=== PATIENT | male | born 1975 | race African-American/Black ===

== ENCOUNTER 2016-12-18 23:35 | Emergency (ER) | payer OTHER ==
[~2016-12-18] VITALS: Ht 160 cm; Wt 66.7 kg
[~2016-12-18 23:35] MED LIST: ADVAIR 250-501 EACH INH; ALBUTEROL SULF8.5 GM INH; ALBUTEROL2.5 MG/3 M HHN; AZITHROMYCIN250 MG ORAL; CYCLOGYL2 ML OP; GENOPTIC O.O1 APPLIC RIGHT EYE; HYDROCHLOROTH12.5 M2 ORAL; HYDROCHLOROTHIA25 MG ORAL; NORVASC5 MG ORAL; PREDNISONE20 M1 PO; PREDNISONE20 MG ORAL; PREDNISONE50 MG ORAL; PROAIR HFA8.5 GM INH; QVAR7.3 G2 IH; TESSALON PERLE100 M2 ORAL
[2016-12-19] MEDS ORDERED: LORazepam Inj 2mg/ml 1ml IV ONE (00:15)
[2016-12-19] MEDS ORDERED: DuoNeb 0.5-3(2.5)mg/3ml neb HHN ONE (00:15)
[2016-12-19 00:32] LABS: MEAN CORPUSCULAR HEMOGLOBIN 31.2 PG (27.0-31.0); MEAN CORPUSCULAR HGB CONC 33.7 G/DL (32.0-36.0); MEAN CORPUSCULAR VOLUME 93 FL (80-99); MEAN PLATELET VOLUME 7.6 FL (6.5-10.1); PLATELET COUNT 302 K/UL (150-450); RED BLOOD COUNT 5.69 M/UL (4.70-6.10)
[2016-12-19 00:52] LABS: ALANINE AMINOTRANSFERASE 26 U/L (3-41); ALBUMIN/GLOBULIN RATIO 1.5 (1.0-2.7); ANION GAP 17 (5-15); ASPARTATE AMINO TRANSFERASE 35 U/L (5-40); CALCIUM 9.9 mg/dL (8.6-10.2); CARBON DIOXIDE 27 mEQ/L (20-30); CHLORIDE 96 mEQ/L (98-107); CREATININE 1.4 mg/dL (0.7-1.2); GLOMERULAR FILTRATION RATE > 60 mL/min (>60); HEMOLYSIS 4; POTASSIUM 4.4 mEQ/L (3.4-4.9); SODIUM 140 mEQ/L (135-145); TOTAL PROTEIN 8.3 g/dL (6.6-8.7)
[2016-12-19 00:55] LABS: TROPONIN I < 0.30 ng/mL (<=0.30)
[2016-12-19 01:30] VITALS: BP 178/106
[2016-12-19 01:45] LABS: CKMB 8.4 ng/mL (< 6.7)
--- NOTE | 2016-12-19 02:50 | Emergency Room Report ---
History of Present Illness General Chief Complaint: Pain Source: Patient Present Illness HPI Patient 41 male presented after increased right shoulder pain. Patient had gradual onset of symptoms. This reported having recent alcohol use as well as cocaine use. He stated prior history of hypertension. Patient stated that he had been having some associated pain which has not worsened by movement he denied recent trauma. Patient stated that he takes hydrochlorothiazide as well as another medication for his blood pressure but cannot recall the name. Allergies: Coded Allergies: No Known Allergies (Unverified , 04/02/13) Patient History Past Medical History: see triage record Reviewed Nursing Documentation: PMH: Agreed, PSxH: Agreed Nursing Documentation-PM Past Medical History: No History, Except For Hx Hypertension: Yes Hx Asthma: Yes Review of Systems All Other Systems: negative except mentioned in HPI Physical Exam Vital Signs Date Time Temp Pulse Resp B/P Pulse Ox O2 Delivery O2 Flow Rate FiO2 12/18/16 23:41 98.1 76 16 200/117 98 Room Air Sp02 EP Interpretation: reviewed, normal General Appearance: normal inspection, well appearing, no apparent distress, alert, GCS 15 Head: atraumatic ENT: normal ENT inspection, hearing grossly normal, normal voice Neck: normal inspection, full range of motion, supple, no bony tend Respiratory: normal inspection, lungs clear, normal breath sounds, no respiratory distress, no retraction, no wheezing Cardiovascular #1: regular rate, rhythm, no edema Gastrointestinal: normal inspection, normal bowel sounds, non tender, soft, no guarding, no hernia Genitourinary: no CVA tenderness Musculoskeletal: normal inspection, back normal, normal range of motion Neurologic: normal inspection, alert, responsive, speech normal Psychiatric: normal inspection, judgement/insight normal, mood/affect normal Skin: normal inspection, normal color, no rash Medical Decision Making Diagnostic Impression: Primary Impression: acute asthma exacerbation Additional Impressions: Uncontrolled hypertension Substance abuse Abnormal EKG ER Course Patient presented for right shoulder pain. Differential diagnosis included but was not limited to acute coronary syndrome, pulmonary embolism, pneumonia, aortic dissection, shingles, pneumothorax, aortic dissection, esophageal rupture , pericarditis. Because of complexity of patient's case laboratory testing and imaging studies were ordered. The patient was noted to have evidence of cardiac ischemia on EKG EKG interpreted by me showed EKG interpreted by me showed normal sinus rhythm with a rate of 73 there were lateral T-wave inversion noted as well as some ST elevation which appears to be J-point elevation present or T inversion noted. Laboratory testing showed no evidence of cardiac injury. Patient's pain was noted to be approximately one day in length. The patient was advised that he requires inpatient cardiac workup. The patient was advised that his EKG was abnormal. The patient was advised risk benefits alternatives of leaving AGAINST MEDICAL ADVICE and he indicated understanding and all questions are answered patient still continued want to leave and signed AGAINST MEDICAL ADVICE. Despite risks including but not limited to disability and worsening of current lifestyle. Labs Test 12/19/16 00:20 12/19/16 02:40 White Blood Count 8.0 K/UL (4.8-10.8) Red Blood Count 5.69 M/UL (4.70-6.10) Hemoglobin 17.7 G/DL (14.2-18.0) Hematocrit 52.6 % (42.0-52.0) Mean Corpuscular Volume 93 FL (80-99) Mean Corpuscular Hemoglobin 31.2 PG (27.0-31.0) Mean Corpuscular Hemoglobin Concent 33.7 G/DL (32.0-36.0) Red Cell Distribution Width 12.0 % (11.6-14.8) Platelet Count 302 K/UL (150-450) Mean Platelet Volume 7.6 FL (6.5-10.1) Neutrophils (%) (Auto) % (45.0-75.0) Lymphocytes (%) (Auto) % (20.0-45.0) Monocytes (%) (Auto) % (1.0-10.0) Eosinophils (%) (Auto) % (0.0-3.0) Basophils (%) (Auto) % (0.0-2.0) Sodium Level 140 mEQ/L (135-145) Potassium Level 4.4 mEQ/L (3.4-4.9) Chloride Level 96 mEQ/L (98-107) Carbon Dioxide Level 27 mEQ/L (20-30) Anion Gap 17 (5-15) Blood Urea Nitrogen 21 mg/dL (7-23) Creatinine 1.4 mg/dL (0.7-1.2) Estimat Glomerular Filtration Rate > 60 mL/min (>60) Glucose Level 104 mg/dL (74-106) Calcium Level 9.9 mg/dL (8.6-10.2) Total Bilirubin 0.3 mg/dL (0.0-1.2) Aspartate Amino Transf (AST/SGOT) 35 U/L (5-40) Alanine Aminotransferase (ALT/SGPT) 26 U/L (3-41) Alkaline Phosphatase 85 U/L (40-129) Total Creatine Kinase 814 U/L (38-174) Creatine Kinase MB 8.4 ng/mL (< 6.7) Creatine Kinase MB Relative Index 1.0 Total Protein 8.3 g/dL (6.6-8.7) Albumin 5.0 g/dL (3.5-5.2) Globulin 3.3 g/dL Albumin/Globulin Ratio 1.5 (1.0-2.7) Chest X-Ray Diagnostic Results EP Interpretation: Yes Findings: no consolidation, no effusion, no pneumothorax, no acute cardiopulmonary disease Number of Views: 1 Last Vital Signs Date Time Temp Pulse Resp B/P Pulse Ox O2 Delivery O2 Flow Rate FiO2 12/19/16 01:34 71 21 98 Room Air 12/19/16 01:30 98.1 178/106 Status: improved Disposition: AGAINST MEDICAL ADVICE Condition: Serious Referrals: [facility] (PCP) Balta Millard Dec 19, 2016 02:50
[2016-12-19 02:59] VITALS: BP 143/98
[2016-12-19 03:17] LABS: TROPONIN I < 0.30 ng/mL (<=0.30)
[2016-12-19 03:30] VITALS: BP 143/98
--- NOTE | 2016-12-19 11:57 | Diagnostic Imaging Report ---
Indication: Chest Pain Comparison: 06/19/14 A single view chest radiograph was obtained. Findings: Cardiomediastinal appearance is within normal limits for age. Pulmonary vascularity is appropriate. The diaphragmatic contour is smooth and costophrenic angles are sharp. No pleural effusions are identified. The bones are unremarkable. Impression: No acute findings
--- NOTE | 2016-12-21 08:29 | Cardiology Report ---
APPROVED REPORT EKG Measurement Heart [id number] Normal sinus rhythm ST elevation, consider early repolarization, pericarditis, or injury RBBB T wave abnormality, consider inferior ischemia Abnormal ECG
--- NOTE | 2016-12-21 08:29 | Cardiology Report ---
APPROVED REPORT EKG Measurement Heart [id number] Normal sinus rhythm ST abn - consider acute inferolateral infarction RBBB Abnormal ECG
== END 2016-12-19 03:30 | disposition left against medical advice (07) ==
LOC: EMR 23:56
DX: J45.901 Unspecified asthma with (acute) exacerbation (principal); I10 Essential (primary) hypertension; F19.10 Other psychoactive substance abuse, uncomplicated; R94.31 Abnormal electrocardiogram [ECG] [EKG]
CPT/HCPCS: 36415; 71010; 80053; 82550; 82553; 84484; 85025; 93005; 94640; 94664; 96374; J7620

== ENCOUNTER 2016-12-23 01:29 | Emergency (ER) | payer OTHER ==
[~2016-12-23] VITALS: Ht 160 cm; Wt 66.7 kg
[2016-12-23 01:45] VITALS: BP 192/128
[2016-12-23 02:00] VITALS: BP 203/126
[2016-12-23] MEDS ORDERED: Norco 5mg/325mg tab ORAL ONE (02:00)
[2016-12-23] MEDS ORDERED: IBUPROFEN600 MG ORAL (02:16)
--- NOTE | 2016-12-23 02:17 | Emergency Room Report ---
History of Present Illness General Chief Complaint: Pain Source: Patient Present Illness HPI This is a 41-year-old male who is left-hand dominant. He presents with chief complaint of right shoulder pain for the last week and a half. No trauma. He woke up one day after drinking in complaining of left shoulder pain area. Worse with certain movement. No fever or chills. No nausea no vomiting. No chest pain. Denies any other complaint. Pain is 8/10. Allergies: Coded Allergies: No Known Allergies (Unverified , 04/02/13) Patient History Past Medical History: see triage record, old chart reviewed, asthma Past Surgical History: other Pertinent Family History: none Social History: Denies: drug use Immunizations: other Reviewed Nursing Documentation: PMH: Agreed, PSxH: Agreed Nursing Documentation-PMH Hx Hypertension: Yes Hx Asthma: Yes Review of Systems Eye: Denies: blurred vision, eye pain ENT: Denies: ear pain, nose congestion, throat swelling Respiratory: Denies: cough, shortness of breath Cardiovascular: Denies: chest pain, palpitations Gastrointestinal: Denies: abdominal pain, diarrhea, nausea, vomiting Musculoskeletal: Reports: joint pain, Denies: back pain Skin: Denies: rash Neurological: Denies: headache, numbness Endocrine: Denies: increased thirst, increased urine Hematologic/Lymphatic: Denies: easy bruising All Other Systems: negative except mentioned in HPI Physical Exam Vital Signs Date Time Temp Pulse Resp B/P Pulse Ox O2 Delivery O2 Flow Rate FiO2 12/23/16 01:37 98.1 73 16 192/128 97 Room Air vitals with hypertension Sp02 EP Interpretation: reviewed, normal General Appearance: well appearing, no apparent distress, alert Head: normocephalic, atraumatic Eyes: bilateral eye EOMI, bilateral eye PERRL ENT: hearing grossly normal, normal pharynx Neck: full range of motion, supple, no meningismus Respiratory: chest non-tender, lungs clear, normal breath sounds Cardiovascular #1: regular rate, rhythm, no murmur Gastrointestinal: normal bowel sounds, non tender, no mass, no organomegaly, no bruit, non-distended Musculoskeletal: back normal, gait/station normal, normal range of motion, other - Tenderness with palpation of the glenoid fossa superiorly. Full range of motion. Sensation normal. Neurologic: alert, oriented x3 Psychiatric: mood/affect normal Skin: warm/dry Medical Decision Making Diagnostic Impression: Primary Impression: Calcific tendonitis of right shoulder region Additional Impressions: Cocaine abuse Hypertension Qualified Codes: I10 - Essential (primary) hypertension ER Course Patient presents with shoulder pain secondary to calcified tendinitis. His blood pressure elevated consistent use cocaine. He has no complaint secondary to high blood pressure. Claimed that he is compliant with his medication. We' ll discharge home. Other X-Ray Diagnostic Results Other X-Ray Diagnostic Results : X-Ray Ordered: X-rays of right shoulder Date: Dec 23, 2016 Time: 02:15 EP Interpretation: Yes Findings: no fractures, no dislocation, no soft tissue swelling, other - calcific tendonitis Number of Views: 3 Last Vital Signs Date Time Temp Pulse Resp B/P Pulse Ox O2 Delivery O2 Flow Rate FiO2 12/23/16 01:45 98.1 73 16 192/128 97 Room Air Status: improved Disposition: HOME, SELF-CARE Condition: Stable Scripts Ibuprofen* (MOTRIN*) 600 Mg Tablet 600 MG ORAL Q8H Y for For Pain, #30 TAB 0 Refills Prov: NEDA NYE M.D. 12/23/16 Referrals: [facility] (PCP) Additional Instructions: Abstain from drugs and alcohol. Followup with your DrYing in 7 days. Take your blood pressure medication. Return if worse. NEDA NYE M.D. Dec 23, 2016 02:17
[2016-12-23 02:31] VITALS: BP 203/126
--- NOTE | 2016-12-23 10:58 | Diagnostic Imaging Report ---
Indication: Pain Findings: 3 views of the right shoulder were obtained. No acute fractures, malalignment, erosions or periostitis are identified. Bone mineralization is within normal limits. Soft tissues are unremarkable. Impression: Negative examination of the shoulder.
== END 2016-12-23 02:33 | disposition home or self-care (01) ==
LOC: EMR 01:55
DX: M75.31 Calcific tendinitis of right shoulder (principal); F14.10 Cocaine abuse, uncomplicated; I10 Essential (primary) hypertension
CPT/HCPCS: 99283

== ENCOUNTER 2017-05-25 17:23 | Emergency (ER) | payer OTHER ==
[~2017-05-25] VITALS: Ht 160 cm; Wt 66.7 kg
[~2017-05-25 17:23] MED LIST changes: +IBUPROFEN600 MG ORAL
[2017-05-25 17:30] VITALS: BP 158/121
--- NOTE | 2017-05-25 17:31 | Emergency Room Report ---
History of Present Illness General Chief Complaint: Dyspnea/Respdistress Source: Patient Present Illness HPI 41-year-old male presents to the emergency department complaining of wheezing and exacerbation of his asthma x1 week. Patient states that he is been using his nebulized albuterol treatments at home with minimal relief. Patient states that he is out of his meter dose inhaler. Patient denies fevers, chills, cough , recent travel or ill contacts. Patient also reports increase in his acid reflux times one week burning sensation is worse at night. Denies CP, Palpitations, LOC, AMS, dizziness, Changes in Vision, Sensation, paresthesias, or a sudden severe headache. Allergies: Coded Allergies: No Known Allergies (Unverified , 04/02/13) Patient History Past Medical History: see triage record Past Surgical History: none Pertinent Family History: none Social History: Reports: smoking Immunizations: UTD Reviewed Nursing Documentation: PMH: Agreed, PSxH: Agreed Nursing Documentation-PMH Hx Hypertension: Yes Hx Asthma: Yes Review of Systems All Other Systems: negative except mentioned in HPI Physical Exam Vital Signs Date Time Temp Pulse Resp B/P (MAP) Pulse Ox O2 Delivery O2 Flow Rate FiO2 05/25/17 17:25 98.4 75 22 175/105 98 Room Air Sp02 EP Interpretation: reviewed, normal General Appearance: no apparent distress, alert, GCS 15, non-toxic Head: normocephalic, atraumatic Eyes: bilateral eye normal inspection, bilateral eye PERRL ENT: hearing grossly normal, normal voice Neck: full range of motion Respiratory: chest non-tender, no respiratory distress, speaking full sentences , wheezing - moderate wheezing bilaterally Cardiovascular #1: regular rate, rhythm, no edema, normal capillary refill Gastrointestinal: normal bowel sounds, non tender, soft Rectal: deferred Musculoskeletal: back normal, gait/station normal, normal range of motion, non- tender Neurologic: alert, oriented x3, responsive, motor strength/tone normal, sensory intact, speech normal Skin: normal color, no rash, warm/dry, well hydrated Medical Decision Making PA Attestation Dr. corbin is my supervising Physician whom patient management has been discussed with. Diagnostic Impression: Primary Impression: acute asthma exacerbation ER Course 41-year-old male presents to the emergency department complaining of wheezing and exacerbation of his asthma x1 week. Patient states that he is been using his nebulized albuterol treatments at home with minimal relief. Patient states that he is out of his meter dose inhaler. Patient denies fevers, chills, cough , recent travel or ill contacts. Patient also reports increase in his acid reflux times one week burning sensation is worse at night. Denies CP, Palpitations, LOC, AMS, dizziness, Changes in Vision, Sensation, paresthesias, or a sudden severe headache. Ddx considered but are not limited to URI, pneumonia, PE, strep pharyngitis, meningitis. Vital signs: Pt.is afebrile VS are WNL H&PE are most consistent with ORDERS: none required at this time, the diagnosis is clinical ED INTERVENTIONS: -Albuterol HHN x 2 -Solumedrol IM -Zantac PO --re-Evaluation: lungs are clear bilaterally, the pt. reports subjective improvement as well. DISCHARGE: At this time pt. is stable for d/c to home. Will provide printed patient care instructions, and any necessary prescriptions. Care plan and follow up instructions have been discussed with the patient prior to discharge. Last Vital Signs Date Time Temp Pulse Resp B/P (MAP) Pulse Ox O2 Delivery O2 Flow Rate FiO2 05/25/17 17:25 98.4 75 22 175/105 98 Room Air Disposition: HOME, SELF-CARE Condition: Stable Scripts Ranitidine Hcl* (ZANTAC*) 150 Mg Tablet 150 MG ORAL TWICE A DAY for 14 Days, #28 TAB Prov: Sabine Cullen 05/25/17 Albuterol Sulfate* (ALBUTEROL SULFATE MDI*) 8.5 Gm Hfa.aer.ad 2 PUFF INH Q3H, #1 INH 3 Refills Prov: Sabine Cullen 05/25/17 Patient Instructions: Asthma, Adult, [id number] Additional Instructions: Take medications as directed. Follow up with a Primary Care Provider in 3-5 days, even if your symptoms have resolved. --Please review list of primary care clinics, if you do not already have a primary care provider Return sooner to ED if new symptoms occur, or current symptoms become worse. - Please note that this Emergency Department Report was dictated using [employer] software, occasionally this can lead to erroneous entry secondary to interpretation by the dictation equipment. Sabine Cullen May 25, 2017 17:31
[2017-05-25] MEDS ORDERED: Albuterol ud Inhalation HHN ONE ×2 (17:45→18:45)
[2017-05-25] MEDS ORDERED: Solu-MEDROL 125mg Inj IM ONE (17:45)
[2017-05-25 19:17] VITALS: BP 172/117
[2017-05-25] MEDS ORDERED: ZANTAC150 MG ORAL (19:23)
[2017-05-25] MEDS ORDERED: ALBUTEROL SULF8.5 GM INH (19:23)
[2017-05-25 19:30] VITALS: BP 172/117
== END 2017-05-25 19:36 | disposition home or self-care (01) ==
LOC: EMR 17:42
DX: J45.901 Unspecified asthma with (acute) exacerbation (principal); I10 Essential (primary) hypertension; F17.200 Nicotine dependence, unspecified, uncomplicated
CPT/HCPCS: 94640; 94664; 96372; 99284; J2930

== ENCOUNTER 2017-06-23 00:29 | Emergency (ER) | payer OTHER ==
[~2017-06-23] VITALS: Ht 160 cm; Wt 63.5 kg
[~2017-06-23 00:29] MED LIST changes: +ZANTAC150 MG ORAL
[2017-06-23 00:34] VITALS: BP 162/118
[2017-06-23] MEDS ORDERED: Ipratropium 0.02% Inh Soln 2.5ml UD HHN ONE (00:45)
[2017-06-23] MEDS ORDERED: Albuterol ud Inhalation HHN ONE (00:45)
[2017-06-23] MEDS ORDERED: PREDNISONE20 MG ORAL (02:33)
[2017-06-23 02:34] VITALS: BP 155/105
[2017-06-23 03:30] VITALS: BP 154/100
--- NOTE | 2017-06-23 03:37 | Emergency Room Report ---
History of Present Illness General Chief Complaint: Asthma Source: Patient Present Illness HPI Patient presents with complaints of asthma exacerbation Patient has had multiple ER visits for this exacerbation Patient reports at the change in weather he feels is likely contributing to his condition today Denies any fevers or chills denies any chest pain He does feel short of breath Denies any vomiting or diarrhea Allergies: Coded Allergies: No Known Allergies (Unverified , 04/02/13) Patient History Past Medical History: see triage record Pertinent Family History: none Reviewed Nursing Documentation: PMH: Agreed, PSxH: Agreed Nursing Documentation-PMH Hx Hypertension: Yes Hx Asthma: Yes Review of Systems All Other Systems: negative except mentioned in HPI Physical Exam Vital Signs Date Time Temp Pulse Resp B/P (MAP) Pulse Ox O2 Delivery O2 Flow Rate FiO2 06/23/17 00:30 97.5 74 18 162/118 98 Room Air 06/23/17 00:45 21 Sp02 EP Interpretation: reviewed, normal General Appearance: well appearing, no apparent distress Head: normocephalic, atraumatic Eyes: bilateral eye PERRL, bilateral eye EOMI ENT: hearing grossly normal, normal pharynx, TMs + canals normal, uvula midline Neck: full range of motion, supple, no meningismus, no bony tend Respiratory: no respiratory distress, no retraction, no accessory muscle use, wheezing - Bilaterally Cardiovascular #1: normal peripheral pulses, regular rate, rhythm, no edema, no gallop, no JVD, no murmur Gastrointestinal: normal bowel sounds, non tender, soft, no mass, no organomegaly, non-distended, no guarding, no hernia, no pulsatile mass, no rebound Genitourinary: no CVA tenderness Musculoskeletal: normal inspection Neurologic: oriented x3, responsive, grease monkey III-XII nml as tested, motor strength/ tone normal, sensory intact Psychiatric: mood/affect normal Skin: normal color, no rash, warm/dry, palpation normal Lymphatic: normal inspection, no adenopathy Medical Decision Making Diagnostic Impression: Primary Impression: Asthma attack ER Course Patient has had multiple imaging on file at this time saturating appropriately No signs of any retractions patient has done significantly better with breathing treatment was given steroids and will continue steroids at home Last Vital Signs Date Time Temp Pulse Resp B/P (MAP) Pulse Ox O2 Delivery O2 Flow Rate FiO2 06/23/17 00:57 78 18 100 Room Air 21 06/23/17 00:34 97.5 162/118 Status: improved Disposition: HOME, SELF-CARE Condition: Improved Scripts Prednisone* (PREDNISONE*) 20 Mg Tablet 20 MG ORAL BID, #8 TAB Prov: JOVANNA MILES D.O. 06/23/17 Referrals: [facility] (PCP) Patient Instructions: Asthma, Adult Additional Instructions: Patient is provided with the discharge instructions notified to follow up with primary doctor in the next 2-3 days otherwise return to the er with any worsening symptoms. Please note that this report is being documented using [employer] technology. This can lead to erroneous entry secondary to incorrect interpretation by the dictating instrument. JOVANNA MILES D.O. Jun 23, 2017 03:37
== END 2017-06-23 03:30 | disposition home or self-care (01) ==
LOC: EMR 00:56
DX: J45.901 Unspecified asthma with (acute) exacerbation (principal); I10 Essential (primary) hypertension
CPT/HCPCS: 94640; 94664; 99284

== ENCOUNTER 2017-08-17 14:14 | Emergency (ER) | payer OTHER ==
[~2017-08-17] VITALS: Ht 160 cm; Wt 72.1 kg
--- NOTE | 2017-08-17 14:34 | Emergency Room Report ---
History of Present Illness General Chief Complaint: Asthma Source: Patient, Medical Record Present Illness HPI 42-year-old male presents ER complaining asthma exacerbation. Patient complains of wheezing "throughout the day" since Thursday. Patient states symptoms worsen at night. Patient reports history of asthma; states he ran out of his inhaler. Patient denies fever, chest pain, rash, nausea, vomiting, diarrhea. Patient requesting breathing treatment. Allergies: Coded Allergies: No Known Allergies (Unverified , 04/02/13) Patient History Past Medical History: see triage record, asthma Reviewed Nursing Documentation: PMH: Agreed, PSxH: Agreed Nursing Documentation-PMH Past Medical History: No History, Except For Hx Hypertension: Yes Hx Asthma: Yes Review of Systems All Other Systems: negative except mentioned in HPI Physical Exam Vital Signs Date Time Temp Pulse Resp B/P (MAP) Pulse Ox O2 Delivery O2 Flow Rate FiO2 08/17/17 14:20 97.7 75 18 162/93 96 Room Air Sp02 EP Interpretation: reviewed, normal General Appearance: no apparent distress, alert, GCS 15, non-toxic Head: normocephalic, atraumatic Eyes: bilateral eye normal inspection, bilateral eye PERRL Neck: full range of motion Respiratory: chest non-tender, no rhonchi, no respiratory distress, no accessory muscle use, wheezing - inspiration and expiration in all lung huang, other - no stridor Cardiovascular #1: regular rate, rhythm Musculoskeletal: back normal, digits/nails normal, gait/station normal, normal range of motion, non-tender Neurologic: alert, oriented x3, responsive, motor strength/tone normal, sensory intact, speech normal Psychiatric: mood/affect normal Skin: normal color, no rash, warm/dry, well hydrated Medical Decision Making PA Attestation Dr. Millard is my supervising Physician whom patient management has been discussed with. Diagnostic Impression: Primary Impression: Asthma attack ER Course Pt presents to ED c/o asthma symptoms. DDX considered but are not limited to asthma, viral URI, influenza. VITAL SIGNS are WNL, patient is afebrile. ORDERS: None required at this time, diagnosis is clinical. ER COURSE Patient provided with prednisone in ER. Albuterol/Atrovent breathing treatment provided. Following first breathing treatment, wheezing still noted bilaterally. Second breathing treatment provided. Following second treatment patient states no longer having difficulty with breathing with mild diffuse wheezing. Patient is resting comfortably in no acute distress. DISCHARGE: -Rx given for Prednisone. -Rx provided for Albuterol MDI. At this time pt is stable for d/c to home. Patient to take medications as instructed Will provide with patient care instructions and any necessary prescriptions. Care plan and follow-up instructions provided. Patient instructed to follow-up with primary care provider in 3 - 5 days. Patient questions asked and answered. ER precautions given. Patient instructed to return to ER immediately for any new or worsening of symptoms including but not limited to increasing SOB, persistent fever. Last Vital Signs Date Time Temp Pulse Resp B/P (MAP) Pulse Ox O2 Delivery O2 Flow Rate FiO2 08/17/17 14:20 97.7 75 18 162/93 96 Room Air Reevaluation Impression 1515 repeat lung exam, intermittent wheezes bilaterally Repeat breathing treatment ordered. 1600 repeat lung exam, mild diffuse wheezes bilaterally. Patient reports feeling "much better" following second breathing treatment. Patient states he is ready to be discharged home. Patient states he has appointment with PCP scheduled for tomorrow for asthma symptoms and treatment. Disposition: HOME, SELF-CARE Condition: Improved Scripts Prednisone* (PREDNISONE*) 20 Mg Tablet 40 MG ORAL DAILY for 5 Days, #10 TAB Prov: Conner Fields 08/17/17 Albuterol Sulfate* (ALBUTEROL SULFATE MDI*) 8.5 Gm Hfa.aer.ad 2 PUFF INH Q4H, #1 INH 0 Refills Prov: Conner Fields 08/17/17 Patient Instructions: Asthma, Adult Additional Instructions: Followup with primary care provider in 3 -5 days. Take medications as directed. Patient questions asked and answered. ER precautions given, patient instructed to return to ER immediately for any new or worsening of symptoms. Conner Fields Aug 17, 2017 14:34
[2017-08-17] MEDS ORDERED: ALBUTEROL SULF8.5 GM INH (14:38)
[2017-08-17] MEDS ORDERED: PREDNISONE20 MG ORAL (14:38)
[2017-08-17] MEDS ORDERED: Solu-MEDROL 125mg Inj IVP ONE (14:45)
[2017-08-17] MEDS ORDERED: Albuterol/Ipratropium 3ml neb HHN ONE ×2 (14:45→15:45)
[2017-08-17 15:18] VITALS: BP 158/90
[2017-08-17 16:01] VITALS: BP 110/79
[2017-08-17 16:02] VITALS: BP_SYST 104; BP_SYST 129; BP_DIAS 64; BP_DIAS 82
[2017-08-17 16:28] VITALS: BP 104/64
== END 2017-08-17 16:32 | disposition home or self-care (01) ==
LOC: EMR 14:52
DX: J45.901 Unspecified asthma with (acute) exacerbation (principal); I10 Essential (primary) hypertension
CPT/HCPCS: 94640; 94664; 96374; 99284; J2930; J7620

== ENCOUNTER 2017-12-05 04:03 | Emergency (ER) | payer OTHER ==
[~2017-12-05] VITALS: Ht 160 cm; Wt 66.7 kg
[2017-12-05 04:20] VITALS: BP 184/106
[2017-12-05] MEDS ORDERED: Ketorolac 30mg Inj IM ONE (04:30)
[2017-12-05] MEDS ORDERED: Methocarbamol 750mg tab ORAL ONE (04:30)
[2017-12-05] MEDS ORDERED: ROBAXIN-750750 MG PO (04:41)
[2017-12-05] MEDS ORDERED: IBUPROFEN600 MG ORAL (04:41)
[2017-12-05 04:50] VITALS: BP 184/106
--- NOTE | 2017-12-05 06:15 | Emergency Room Report ---
History of Present Illness General Chief Complaint: Neck Pain Source: Patient Present Illness HPI 42-year-old male presents ED complaining of left sided neck pain. Started last night. Woke him up from sleep. Pain is throbbing, 10 out of 10, nonradiating. Denies any nuchal rigidity. Denies any fevers or chills. Denies any headache. Per triage blood pressure elevated. Patient states he did not take his blood pressure medication for 2 days. States he has medication at home. Denies chest pain or shortness of breath. No other aggravating relieving factors. Denies any other associated symptoms Allergies: Coded Allergies: No Known Allergies (Unverified , 04/02/13) Patient History Past Medical History: HTN, asthma Past Surgical History: none Pertinent Family History: none Social History: Denies: smoking, alcohol use, drug use Immunizations: UTD Reviewed Nursing Documentation: PMH: Agreed; PSxH: Agreed Nursing Documentation-PMH Hx Hypertension: Yes Hx Asthma: Yes Review of Systems All Other Systems: negative except mentioned in HPI Physical Exam Vital Signs Date Time Temp Pulse Resp B/P (MAP) Pulse Ox O2 Delivery O2 Flow Rate FiO2 12/05/17 04:06 98.3 113 18 184/106 97 Room Air 98.2 Sp02 EP Interpretation: reviewed, normal General Appearance: no apparent distress, alert, GCS 15, non-toxic Head: normocephalic, atraumatic Eyes: bilateral eye normal inspection, bilateral eye PERRL ENT: hearing grossly normal, normal pharynx, no angioedema, normal voice Neck: full range of motion, supple, no meningismus, supple/symm/no masses, tender lateral Respiratory: chest non-tender, lungs clear, normal breath sounds, speaking full sentences Cardiovascular #1: regular rate, rhythm, no edema Cardiovascular #2: 2+ carotid (R), 2+ carotid (L), 2+ radial (R), 2+ radial (L) , 2+ dorsalis pedis (R), 2+ dorsalis pedis (L) Gastrointestinal: normal bowel sounds, non tender, soft, non-distended, no guarding, no rebound Rectal: deferred Genitourinary: normal inspection, no CVA tenderness Musculoskeletal: back normal, gait/station normal, normal range of motion, non- tender Neurologic: alert, oriented x3, responsive, motor strength/tone normal, sensory intact, speech normal Psychiatric: judgement/insight normal, memory normal, mood/affect normal, no suicidal/homicidal ideation Reflexes: 3+ bicep (R), 3+ bicep (L), 3+ tricep (R), 3+ tricep (L), 3+ knee (R) , 3+ knee (L) Skin: normal color, no rash, warm/dry, well hydrated Lymphatic: no adenopathy Medical Decision Making Diagnostic Impression: Primary Impression: Neck strain Qualified Codes: S16.1XXA - Strain of muscle, fascia and tendon at neck level , initial encounter Additional Impression: Hypertension Qualified Codes: I10 - Essential (primary) hypertension ER Course Hospital Course 42-year-old male presents ED complaining of left-sided neck pain, BP high Differential diagnoses include: neck strain, shoulder strain, dislocation/ fracture Clinical course Patient placed on stretcher. After initial history and physical exam reveals middle-aged male in no acute distress. On exam there is no midline neck tenderness or shoulder tenderness. Full range of motion to the shoulder. There is pain over the left trapezius. Consistent with a neck strain/shoulder strain There is no nuchal rigidity. No focal neurological deficits. Cranial nerves II through XII grossly intact. Blood pressure is highasymptomatic hypertension. Given his hydrochlorothiazide and amlodipine here I ordered Toradol, Robaxin in ED. Upon reassessment pain is improved Diagnosis - neck strain, hypertension Stable and discharged to home with prescription for treatment motrin, robaxin. Followup with PMD. Return to ED if symptoms recur or worsen Last Vital Signs Date Time Temp Pulse Resp B/P (MAP) Pulse Ox O2 Delivery O2 Flow Rate FiO2 12/05/17 04:50 98.3 18 184/106 97 Room Air 208.9 12/05/17 04:46 113 Status: improved Disposition: HOME, SELF-CARE Condition: Stable Scripts Methocarbamol* (ROBAXIN-750*) 750 Mg Tablet 750 MG PO TID, #21 TAB 0 Refills Prov: Pascual Donohue MD 12/05/17 Ibuprofen* (MOTRIN*) 600 Mg Tablet 600 MG ORAL Q8H PRN for For Pain, #30 TAB 0 Refills Prov: Pascual Donohue MD 12/05/17 Patient Instructions: Cervical Strain and Sprain With Rehab-SportsMed Charanjit,Pascual MD December 05, 2017 06:15
== END 2017-12-05 04:50 | disposition home or self-care (01) ==
LOC: EMR 04:21
DX: S16.1XXA Strain of muscle, fascia and tendon at neck level, initial encounter (principal); X58.XXXA Exposure to other specified factors, initial encounter; Y92.9 Unspecified place or not applicable; I10 Essential (primary) hypertension; J45.909 Unspecified asthma, uncomplicated
CPT/HCPCS: 96372; 99284; J1885

== ENCOUNTER 2017-12-21 13:56 | Emergency (ER) | payer OTHER ==
[~2017-12-21] VITALS: Ht 160 cm; Wt 66.7 kg
[~2017-12-21 13:56] MED LIST changes: +ROBAXIN-750750 MG PO
[2017-12-21 14:30] VITALS: BP 154/98
--- NOTE | 2017-12-21 14:37 | Emergency Room Report ---
History of Present Illness General Chief Complaint: Upper Extremity Injury Present Illness HPI 42-year-old male patient presents ER complaining of left shoulder and arm pain for the past 2 weeks. Reports was previously seen and [facility] for left neck pain, states that the pain in his neck is now in his arm. Reports she has not followed up with his primary care provider since that time. Denies loss of range of motion or acute injury since that time. Denies other acute symptoms, denies chest pain, shows breath, abdominal pain, headache. Reports has not seen his primary care provider. Allergies: Coded Allergies: No Known Allergies (Unverified , 04/02/13) Patient History Past Medical History: see triage record Reviewed Nursing Documentation: PMH: Agreed; PSxH: Agreed Nursing Documentation-PMH Hx Hypertension: Yes Hx Asthma: Yes Review of Systems All Other Systems: negative except mentioned in HPI Physical Exam Vital Signs Date Time Temp Pulse Resp B/P (MAP) Pulse Ox O2 Delivery O2 Flow Rate FiO2 12/21/17 14:08 98.1 63 18 187/114 98 Room Air 98.1 Sp02 EP Interpretation: reviewed, normal General Appearance: well appearing, no apparent distress, alert, GCS 15, non- toxic Head: normocephalic, atraumatic Eyes: bilateral eye normal inspection, bilateral eye PERRL ENT: hearing grossly normal, normal pharynx, no angioedema, normal voice, uvula midline, moist mucus membranes Neck: full range of motion Respiratory: lungs clear, normal breath sounds, no rhonchi, no respiratory distress, no accessory muscle use, no wheezing, speaking full sentences Cardiovascular #1: regular rate, rhythm, no edema Cardiovascular #2: 2+ radial (R), 2+ radial (L) Musculoskeletal: back normal, digits/nails normal, gait/station normal, normal range of motion, non-tender, other - NVI, no skin tenting, negative sulcus sign , no bony step-off, no bony TTP Neurologic: alert, oriented x3, responsive, motor strength/tone normal, sensory intact Psychiatric: mood/affect normal Skin: no rash Medical Decision Making PA Attestation Dr. Mitchell is my supervising Physician whom patient management has been discussed with. Diagnostic Impression: Primary Impression: Shoulder stiffness Additional Impression: History of hypertension ER Course Pt. presents to the ED c/o left upper extremity pain. Ddx considered but are not limited to sprain, strain, contusion, muscle spasm. Vital signs: are WNL, pt. is afebrile. Blood pressure elevated. consistent with previous visit, patient denies acute symptoms at this time, does not require acute intervention, states he took his hypertension medication earlier today, instructed patient to follow-up with primary care provider for further management and treatment, may need to change medications or dosages that it is currently on, advised low-sodium diet. Ordered X-ray and pain medication. ER COURSE On physical exam, no focal neurological deficits. No tenderness to palpation of neck or shoulder, no bony step-off. Patient has full range of motion of shoulder, neck and upper extremities basilaterally., no tenderness palpation, symptoms likely related to muscle spasm from neck causing slight irritation of shoulder, patient also states that he has not been moving his arm or performing any range of motion exercises. Do not believe patient needs imaging at this time, has full range of motion, NVI , no acute trauma. Instructed patient to begin range of motion exercises to increase strength and prevent stiffness. Will provide medication to patient. Follow up with primary care provider and discuss referral to orthopedic or pain management as needed. Discuss hypertension. provided patient with contact information for orthopedic urgent care. Patient instructed on RICE method: rest, ice, compression, elevation. Patient instructed to WBAT. Followup with primary care provider. Discuss referral to ortho/pain management/PT as needed. Discuss further imaging with MRI/CT as needed. DISCHARGE: -Rx provided for Ibuprofen for pain symptoms. -Rx provided for Methocarbamol. SE drowsiness, do not drink, drive, or operate heavy machinery while using. At this time pt. is stable for d/c to home. Patient is resting comfortably, in no acute distress, nontoxic appearing, talking without difficulty. Will provide printed patient care instructions, and any necessary prescriptions. Patient instructed to follow with primary care provider in 3 - 5 days and to request further orthopedic follow-up. Care plan and follow up instructions have been discussed with the patient prior to discharge. Take medications as directed. Patient questions asked and answered. Patient reports understanding and agreement to treatment plan. ER precautions given, patient instructed to return to ER immediately for any new or worsening of symptoms. - Please note that this Emergency Department Report was dictated using Skulpt technology software, occasionally this can lead to erroneous entry secondary to interpretation by the dictation equipment. Last Vital Signs Date Time Temp Pulse Resp B/P (MAP) Pulse Ox O2 Delivery O2 Flow Rate FiO2 12/21/17 14:08 98.1 63 18 187/114 98 Room Air 98.1 Disposition: HOME, SELF-CARE Condition: Stable Scripts Methocarbamol* (ROBAXIN*) 500 Mg Tablet 500 MG PO TID, #21 TAB 0 Refills Prov: Conner Fields 12/21/17 Ibuprofen* (MOTRIN*) 600 Mg Tablet 600 MG ORAL Q8H PRN for For Pain, #30 TAB 0 Refills Prov: Conner Fields 12/21/17 Patient Instructions: Hypertension, [id number], Shoulder Pain, [id number], Shoulder Range of Motion Exercises Additional Instructions: Patient instructed to follow up with primary care provider and discuss further referral to orthopedics and/or PT. Discuss hypertension medications with PCP and further management treatment. Possible referral to cardiology as needed. Low sodium diet. Patient instructed on RICE method: rest, ice, compression, elevation. Patient instructed to WBAT.Performed strength and range of motion exercises. Take medications as directed. Muscle relaxant may cause drowsiness, do not take prior to drinking, driving or operating heavy machinery. Patient questions asked and answered. ER precautions given, patient instructed to return to ER immediately for any new or worsening of symptoms. Conner Fields Dec 21, 2017 14:37
[2017-12-21] MEDS ORDERED: ROBAXIN500 MG PO (14:41)
[2017-12-21] MEDS ORDERED: IBUPROFEN600 MG ORAL (14:41)
[2017-12-21] MEDS ORDERED: Acetaminophen 500mg (ES) tab ORAL ONE (14:45)
== END 2017-12-21 14:38 | disposition home or self-care (01) ==
LOC: EMR 14:36
DX: M25.612 Stiffness of left shoulder, not elsewhere classified (principal); I10 Essential (primary) hypertension
CPT/HCPCS: 99284

== ENCOUNTER 2018-02-11 03:58 | Emergency (ER) | payer OTHER ==
[~2018-02-11] VITALS: Ht 160 cm; Wt 66.7 kg
[~2018-02-11 03:58] MED LIST changes: +ROBAXIN500 MG PO
[2018-02-11 04:15] VITALS: BP 162/111
[2018-02-11] MEDS ORDERED: CEPHALEXIN500 MG ORAL (04:17)
[2018-02-11 04:30] VITALS: BP 162/111
--- NOTE | 2018-02-11 05:45 | Emergency Room Report ---
History of Present Illness General Chief Complaint: Eye Problems Source: Patient Present Illness HPI 42-year-old male presents ED complaining of left eyelid swelling. States started last night prior to going to sleep and he woke up with swelling to his left eyelid. States he was rubbing his eye rather vigorously. Denies any pain. Feels pressure. Denies any photophobia or blurry vision. Denies any eye discharge. Denies any known food or drug allergies. No other aggravating relieving factors. Denies any other associated symptoms Allergies: Coded Allergies: No Known Allergies (Unverified , 04/02/13) Patient History Past Medical History: HTN, asthma Past Surgical History: none Pertinent Family History: none Social History: Denies: smoking, alcohol use, drug use Immunizations: UTD Reviewed Nursing Documentation: PMH: Agreed; PSxH: Agreed Nursing Documentation-PMH Hx Hypertension: Yes Hx Asthma: Yes Review of Systems All Other Systems: negative except mentioned in HPI Physical Exam Vital Signs Date Time Temp Pulse Resp B/P (MAP) Pulse Ox O2 Delivery O2 Flow Rate FiO2 02/11/18 04:01 98.1 55 16 162/111 97 Room Air 98.1 Sp02 EP Interpretation: reviewed, normal General Appearance: no apparent distress, alert, GCS 15, non-toxic Head: normocephalic Eyes: left eye lid inflammation - L upper eyelid; bilateral eye normal inspection, bilateral eye PERRL, bilateral eye EOMI, bilateral eye visual acuity ENT: normal ENT inspection Neck: normal inspection Respiratory: normal inspection Cardiovascular #1: normal inspection Gastrointestinal: normal inspection Rectal: deferred Genitourinary: no CVA tenderness Musculoskeletal: normal inspection Neurologic: alert, oriented x3, responsive, motor strength/tone normal, sensory intact, speech normal Psychiatric: normal inspection Skin: normal inspection Lymphatic: normal inspection Medical Decision Making Diagnostic Impression: Primary Impression: Eyelid cellulitis Qualified Codes: H00.036 - Abscess of eyelid left eye, unspecified eyelid ER Course Hospital Course 42-year-old male presents to ED with left eyelid swelling Differential diagnoses include: conjunctivitis, traumatic iritis, foreign body, corneal abrasion Clinical course Patient placed on stretcher. After initial history, physical exam reveals male in no acute distress. On exam there is significant swelling and erythema to the left upper eyelid. Nonfluctuant. No discharge. Ocular exam unremarkable. We will treat with warm compresses, antibiotics. Close follow-up with PMD Diagnosis - eyelid cellulitis Stable and discharged to home with prescription for keflex. warm compresses. Followup with PMD/Optho. Return to ED if symptoms recur or worsen Last Vital Signs Date Time Temp Pulse Resp B/P (MAP) Pulse Ox O2 Delivery O2 Flow Rate FiO2 02/11/18 04:30 98.1 55 16 162/111 97 Room Air 98.1 Status: improved Disposition: HOME, SELF-CARE Condition: Stable Scripts Cephalexin* (KEFLEX*) 500 Mg Capsule 500 MG ORAL EVERY 6 HOURS for 7 Days, CAP Prov: Pascual Donohue MD 02/11/18 Referrals: [facility] (PCP) Patient Instructions: Blepharitis, [id number] Pascual Donohue MD Feb 11, 2018 05:45
== END 2018-02-11 04:30 | disposition home or self-care (01) ==
LOC: EMR 04:20
DX: H00.034 Abscess of left upper eyelid (principal); I10 Essential (primary) hypertension; J45.909 Unspecified asthma, uncomplicated
CPT/HCPCS: 99283

== ENCOUNTER 2018-04-01 00:18 | Emergency (ER) | payer OTHER ==
[~2018-04-01] VITALS: Ht 160 cm; Wt 66.7 kg
[~2018-04-01 00:18] MED LIST changes: +CEPHALEXIN500 MG ORAL
[2018-04-01] MEDS ORDERED: Albuterol/Ipratropium 3ml neb HHN ONE (00:30)
[2018-04-01 01:00] VITALS: BP 182/122
[2018-04-01] MEDS ORDERED: ALBUTEROL SULF8.5 GM INH (01:19)
[2018-04-01] MEDS ORDERED: NORVASC5 MG ORAL (01:19)
[2018-04-01] MEDS ORDERED: PREDNISONE20 MG ORAL (01:21)
[2018-04-01 01:30] VITALS: BP_SYST 182; BP_DIAS 101; BP_DIAS 122
--- NOTE | 2018-04-01 04:41 | Emergency Room Report ---
History of Present Illness General Chief Complaint: Asthma Present Illness HPI Patient is a 42-year-old male who presented after increased difficulty breathing. Patient had prior history of asthma. He reports running out of his medications. Patient had not been having any fever. He reports having a productive cough. He reports having increased nasal congestion. He denies any recent steroid use. He denies any increased leg pain or swelling. He denies any chest discomfort at this time. Allergies: Coded Allergies: No Known Allergies (Unverified , 04/02/13) Patient History Past Medical History: see triage record Reviewed Nursing Documentation: PMH: Agreed; PSxH: Agreed Nursing Documentation-PMH Hx Hypertension: Yes Hx Asthma: Yes Review of Systems All Other Systems: negative except mentioned in HPI Physical Exam Vital Signs Date Time Temp Pulse Resp B/P (MAP) Pulse Ox O2 Delivery O2 Flow Rate FiO2 04/01/18 00:21 98.1 80 18 182/122 95 Room Air 98.1 04/01/18 00:35 21 General Appearance: well appearing, no apparent distress, alert, GCS 15 Head: normocephalic, atraumatic ENT: hearing grossly normal, normal voice Neck: full range of motion, supple Respiratory: wheezing Cardiovascular #1: normal inspection, regular rate, rhythm, no edema Gastrointestinal: normal inspection Musculoskeletal: normal inspection, back normal, no calf tenderness Neurologic: normal inspection, alert, oriented x3, responsive, lens grinder and polisher III-XII nml as tested, normal gait Psychiatric: mood/affect normal Skin: no rash Medical Decision Making Diagnostic Impression: Primary Impression: asthma exacerbation ER Course Patient presented for shortness of breath.Differential diagnosis included but was not limited to bronchitis, pneumonia, pulmonary embolism, pericarditis, asthma, foreign body. Patient has a benign exam and does not appear to require any further imaging or laboratory testing at this time. Patient is given nebulized albuterol with improvement. Patient was given steroids.patient appears to have an asthma exacerbation. Repeat lung exam showed improved breath sounds.The patient is advised to follow up with primary care doctor in 1 -2 days. Patient is advised to return if any worsening condition or if any changes in status that are concerning. This report is dictated with shoutr grinder software which may occasionally lead to discrepancies related to use of this software. Last Vital Signs Date Time Temp Pulse Resp B/P (MAP) Pulse Ox O2 Delivery O2 Flow Rate FiO2 04/01/18 00:46 78 20 99 Room Air 21 04/01/18 00:21 98.1 182/122 98.1 Status: improved Disposition: HOME, SELF-CARE Condition: Stable Scripts Prednisone* (PREDNISONE*) 20 Mg Tablet 40 MG ORAL DAILY, #10 TAB Prov: Balta Millard MD 04/01/18 Amlodipine Besylate (Norvasc) 5 Mg Tablet 5 MG ORAL DAILY, #30 TAB Prov: Balta Millard MD 04/01/18 Albuterol Sulfate* (ALBUTEROL SULFATE MDI*) 8.5 Gm Hfa.aer.ad 2 PUFF INH Q4H, #1 INH 0 Refills Prov: Balta Millard MD 04/01/18 Referrals: [facility] (PCP) Patient Instructions: Asthma, Adult Balta Millard MD Apr 01, 2018 04:41
== END 2018-04-01 01:30 | disposition home or self-care (01) ==
LOC: EMR 00:57
DX: J45.901 Unspecified asthma with (acute) exacerbation (principal); I10 Essential (primary) hypertension
CPT/HCPCS: 94640; 94664; 99284; J7512; J7620

== ENCOUNTER 2018-06-01 22:25 | Emergency (ER) | payer OTHER ==
[~2018-06-01] VITALS: Ht 160 cm; Wt 66.7 kg
[2018-06-01] MEDS ORDERED: Albuterol/Ipratropium 3ml neb HHN ONE (23:00)
[2018-06-01] MEDS ORDERED: ALBUTEROL SULF8.5 GM INH (23:04)
[2018-06-01] MEDS ORDERED: NORVASC10 MG ORAL (23:04)
[2018-06-01] MEDS ORDERED: PREDNISONE20 MG ORAL (23:04)
[2018-06-01] MEDS ORDERED: POLYTRIM OP SOL10 ML OPHTHALM (23:04)
[2018-06-01] MEDS ORDERED: HYDROCHLOROTHIA25 MG ORAL (23:04)
--- NOTE | 2018-06-01 23:05 | Emergency Room Report ---
History of Present Illness General Chief Complaint: Asthma Source: Patient Present Illness HPI This is a 42-year-old male with a history of asthma. He presents with 2 chief complaints. First one is his as his been acting up. Is due to weather change been ongoing for last 2 days. He uses last inhaler yesterday. Worse with exertion. No fever chills but no nausea no vomiting. Better with rest. Second complaint that he has swelling to his left upper eyelid. Onset for week. No drainage. No trauma. No fever. He had this when he was a little kid. Allergies: Coded Allergies: No Known Allergies (Unverified , 04/02/13) Patient History Past Medical History: see triage record, old chart reviewed, HTN, asthma Past Surgical History: other Pertinent Family History: none Social History: Denies: smoking Immunizations: other Reviewed Nursing Documentation: PMH: Agreed; PSxH: Agreed Nursing Documentation-PMH Past Medical History: No History, Except For Hx Hypertension: Yes Hx Asthma: Yes Review of Systems Eye: Denies: eye pain, blurred vision ENT: Denies: ear pain, nose congestion, throat swelling Respiratory: Reports: shortness of breath, wheezing; Denies: cough Cardiovascular: Denies: chest pain, palpitations Gastrointestinal: Denies: abdominal pain, diarrhea, nausea, vomiting Musculoskeletal: Denies: back pain, joint pain Skin: Denies: rash Neurological: Denies: headache, numbness Endocrine: Denies: increased thirst, increased urine Hematologic/Lymphatic: Denies: easy bruising All Other Systems: negative except mentioned in HPI Physical Exam Vital Signs Date Time Temp Pulse Resp B/P (MAP) Pulse Ox O2 Delivery O2 Flow Rate FiO2 06/01/18 22:43 98.4 76 22 197/123 97 Room Air vitals with hypertension Sp02 EP Interpretation: reviewed, normal General Appearance: well appearing, no apparent distress, alert Head: normocephalic, atraumatic Eyes: left eye other - left upper eyelid with stye; bilateral eye PERRL, bilateral eye EOMI ENT: hearing grossly normal, normal pharynx Neck: full range of motion, supple, no meningismus Respiratory: chest non-tender, lungs clear, normal breath sounds Cardiovascular #1: regular rate, rhythm, no murmur Gastrointestinal: normal bowel sounds, non tender, no mass, no organomegaly, no bruit, non-distended Musculoskeletal: back normal, gait/station normal, normal range of motion Psychiatric: mood/affect normal Skin: warm/dry Medical Decision Making Diagnostic Impression: Primary Impression: acute asthma exacerbation Additional Impressions: Hypertension Qualified Codes: I10 - Essential (primary) hypertension Sty, internal Qualified Codes: H00.024 - Hordeolum internum left upper eyelid ER Course Patient presents with acute exacerbation of his asthma. Better after breathing treatment and steroid. No evidence of respiratory failure. We'll discharge home. We'll increase his blood pressure medication. Last Vital Signs Date Time Temp Pulse Resp B/P (MAP) Pulse Ox O2 Delivery O2 Flow Rate FiO2 06/01/18 22:43 98.4 76 22 197/123 97 Room Air Status: improved Disposition: HOME, SELF-CARE Condition: Stable Scripts Hydrochlorothiazide* (HYDROCHLOROTHIAZIDE*) 25 Mg Tablet 25 MG ORAL DAILY, #90 TAB Prov: Xiang Fontana MD 06/01/18 Amlodipine Besylate (Norvasc) 10 Mg Tablet 10 MG ORAL DAILY, #90 TAB Prov: Xiang Fontana MD 06/01/18 Polymyxin/Trimethoprim (Polytrim Eye Drops) 10 Ml Drops 2 DROP OPHTHALM THREE TIMES A DAY, #1 EA Instill in affected eye for 7 days Prov: Xiang Fontana MD 06/01/18 Prednisone* (PREDNISONE*) 20 Mg Tablet 60 MG ORAL DAILY, #12 TAB Prov: Xiang Fontana MD 06/01/18 Albuterol Sulfate* (ALBUTEROL SULFATE MDI*) 8.5 Gm Hfa.aer.ad 2 PUFF INH Q4H PRN for cough/wheezing, #1 EA 0 Refills Prov: Xiang Fontana MD 06/01/18 Patient Instructions: Asthma, Adult Additional Instructions: Follow-up with your doctor in a week for recheck. Return if symptom worsen. Xiang Fontana MD Jun 01, 2018 23:05
[2018-06-01] MEDS ORDERED: Albuterol ud Inhalation HHN ONE (23:30)
[2018-06-01 23:59] VITALS: BP 192/128
[2018-06-02] VITALS: BP 192/128
== END 2018-06-02 | disposition home or self-care (01) ==
LOC: EMR 23:04
DX: J45.901 Unspecified asthma with (acute) exacerbation (principal); H00.024 Hordeolum internum left upper eyelid; I10 Essential (primary) hypertension
CPT/HCPCS: 94640; 94664; 99284; J7512; J7620

== ENCOUNTER 2018-07-11 20:46 | Emergency (ER) | payer SELFPAY ==
[~2018-07-11] VITALS: Ht 160 cm; Wt 66.7 kg
[~2018-07-11 20:46] MED LIST changes: +NORVASC10 MG ORAL; +POLYTRIM OP SOL10 ML OPHTHALM
--- NOTE | 2018-07-11 21:08 | Emergency Room Report ---
History of Present Illness General Chief Complaint: Asthma Source: Patient Present Illness HPI Is a 42-year-old male with a history of asthma. He presents with chief complaint of asthma exacerbation. Onset for last couple days. He said that he went to a [place] announcing that seemed to worsen his asthma. He is out of his inhaler. His inhaler only lasts him about a month. He's not on any long acting data Liset or steroid inhaler. No fever chills but no nausea no vomiting. Worse with exertion. Worse with lying flat. Better with rest. Similar symptoms in the past. Allergies: Coded Allergies: No Known Allergies (Unverified , 04/02/13) Patient History Past Medical History: see triage record, old chart reviewed, asthma Past Surgical History: other Pertinent Family History: none Social History: Denies: smoking Immunizations: other Reviewed Nursing Documentation: PMH: Agreed; PSxH: Agreed Nursing Documentation-PM Past Medical History: No History, Except For Hx Hypertension: Yes Hx Asthma: Yes Review of Systems Eye: Denies: eye pain, blurred vision ENT: Denies: ear pain, nose congestion, throat swelling Respiratory: Reports: cough, shortness of breath, wheezing Cardiovascular: Denies: chest pain, palpitations Gastrointestinal: Denies: abdominal pain, diarrhea, nausea, vomiting Musculoskeletal: Denies: back pain, joint pain Skin: Denies: rash Neurological: Denies: headache, numbness Endocrine: Denies: increased thirst, increased urine Hematologic/Lymphatic: Denies: easy bruising All Other Systems: negative except mentioned in HPI Physical Exam Vital Signs Date Time Temp Pulse Resp B/P (MAP) Pulse Ox O2 Delivery O2 Flow Rate FiO2 07/11/18 20:56 98.4 94 18 172/108 93 Room Air vitals with high blood pressure Sp02 EP Interpretation: reviewed, abnormal General Appearance: well appearing, no apparent distress, alert Head: normocephalic, atraumatic Eyes: bilateral eye PERRL, bilateral eye EOMI ENT: hearing grossly normal, normal pharynx Neck: full range of motion, supple, no meningismus Respiratory: chest non-tender, wheezing Cardiovascular #1: regular rate, rhythm, no murmur Gastrointestinal: normal bowel sounds, non tender, no mass, no organomegaly, no bruit, non-distended Musculoskeletal: back normal, gait/station normal, normal range of motion Psychiatric: mood/affect normal Skin: warm/dry Medical Decision Making Diagnostic Impression: Primary Impression: acute asthma exacerbation Additional Impression: Hypertension Qualified Codes: I10 - Essential (primary) hypertension ER Course Patient with asthma exacerbation. Asthma is well-controlled. No evidence of respiratory distress, pneumonia, ACS, PE to name a few. Better after breathing treatment. We'll discharge home. Last Vital Signs Date Time Temp Pulse Resp B/P (MAP) Pulse Ox O2 Delivery O2 Flow Rate FiO2 07/11/18 20:56 98.4 94 18 172/108 93 Room Air Status: improved Disposition: HOME, SELF-CARE Condition: Stable Scripts Fluticasone/Salmeterol (Advair 250-50 Diskus) 1 Each Blst.w.dev 1 PUFF INH EVERY 12 HOURS, #1 EA Prov: Xiang Fontana MD 07/11/18 Prednisone* (PREDNISONE*) 20 Mg Tablet 40 MG ORAL DAILY, #8 TAB Prov: Xiang Fontana MD 07/11/18 Albuterol Sulfate* (ALBUTEROL SULFATE MDI*) 8.5 Gm Hfa.aer.ad 2 PUFF INH Q4H PRN for cough/wheezing, #1 EA 0 Refills Prov: Xiang Fontana MD 07/11/18 Patient Instructions: Asthma, Adult Additional Instructions: Stop smoking. Follow-up with your doctor in 7 days. Return if symptom worsen. Xiang Fontana MD Jul 11, 2018 21:08
[2018-07-11] MEDS ORDERED: ALBUTEROL SULF8.5 GM INH (21:10)
[2018-07-11] MEDS ORDERED: PREDNISONE20 MG ORAL (21:10)
[2018-07-11] MEDS ORDERED: ADVAIR 250-501 EACH INH (21:10)
[2018-07-11 21:13] VITALS: BP 172/108
[2018-07-11] MEDS ORDERED: Albuterol/Ipratropium 3ml neb HHN ONE (21:15)
[2018-07-11] MEDS ORDERED: Albuterol ud Inhalation HHN ONE ×2 (21:30→22:00)
[2018-07-11 22:45] VITALS: BP 166/96
== END 2018-07-11 22:45 | disposition home or self-care (01) ==
LOC: EMR 21:25
DX: J45.901 Unspecified asthma with (acute) exacerbation (principal); I10 Essential (primary) hypertension
CPT/HCPCS: 94640; 94664; 99284; J7512; J7620

== ENCOUNTER 2019-10-07 05:43 | Emergency (ER) | payer SELFPAY ==
[~2019-10-07] VITALS: Ht 160 cm; Wt 66.7 kg
[2019-10-07 06:00] VITALS: BP 180/100
--- NOTE | 2019-10-07 06:09 | Emergency Room Report ---
History of Present Illness General Chief Complaint: Neck Pain Source: Patient Present Illness HPI This is a 44-year-old male with history of asthma. He presents with chief plaint of neck pain and shoulder pain. He woke up around 2 AM with right shoulder trapezius muscle throbbing pain. Pain is 7 out of 10. Worse with movement. No heavy lifting. No injury. No chest pain. Denies any trauma. Patient also said that he has been out of his blood pressure medication for a week. COVID-19 risk:Contact w/high r: No COVID-19 risk:Travel to affect: No Has patient experienced kurtz: No Allergies: Coded Allergies: No Known Allergies (Unverified , 04/02/13) Patient History Past Medical History: see triage record, old chart reviewed, asthma Past Surgical History: none Pertinent Family History: none Social History: Denies: smoking Immunizations: other Reviewed Nursing Documentation: PMH: Agreed; PSxH: Agreed Nursing Documentation-PMH Hx Hypertension: Yes Hx Asthma: Yes Review of Systems Eye: Denies: eye pain, blurred vision ENT: Denies: ear pain, nose congestion, throat swelling Respiratory: Denies: cough, shortness of breath Cardiovascular: Denies: chest pain, palpitations Gastrointestinal: Denies: abdominal pain, diarrhea, nausea, vomiting Musculoskeletal: Denies: back pain, joint pain Skin: Denies: rash Neurological: Denies: headache, numbness Endocrine: Denies: increased thirst, increased urine Hematologic/Lymphatic: Denies: easy bruising All Other Systems: negative except mentioned in HPI Physical Exam Vital Signs Date Time Temp Pulse Resp B/P (MAP) Pulse Ox O2 Delivery O2 Flow Rate FiO2 10/07/19 05:49 97.7 89 19 198/130 (152) 94 Room Air Vitals with high blood pressure Sp02 EP Interpretation: reviewed, normal General Appearance: well appearing, no apparent distress, alert Head: normocephalic, atraumatic Eyes: bilateral eye PERRL, bilateral eye EOMI ENT: hearing grossly normal, normal pharynx Neck: full range of motion, supple, no meningismus, tender - Mild tenderness to the right trapezius muscle. Reproducible with movement Respiratory: chest non-tender, lungs clear, normal breath sounds Cardiovascular #1: regular rate, rhythm, no murmur Gastrointestinal: normal bowel sounds, non tender, no mass, no organomegaly, no bruit, non-distended Musculoskeletal: back normal, normal range of motion, gait/station normal Psychiatric: mood/affect normal Medical Decision Making Diagnostic Impression: Primary Impression: Hypertension Qualified Codes: I10 - Essential (primary) hypertension Additional Impression: Strain of neck muscle Qualified Codes: S16.1XXA - Strain of muscle, fascia and tendon at neck level , initial encounter ER Course Patient with a muscle strain. No evidence of any fracture dislocation. No need for x-ray. He also has elevated blood pressure. Been out of his medication for a week. He is asymptomatic otherwise. Last Vital Signs Date Time Temp Pulse Resp B/P (MAP) Pulse Ox O2 Delivery O2 Flow Rate FiO2 10/07/19 06:00 87 19 180/100 94 Room Air 10/07/19 05:49 97.7 Status: improved Disposition: HOME, SELF-CARE Condition: Serious Scripts Hydrochlorothiazide* (HYDROCHLOROTHIAZIDE*) 25 Mg Tablet 25 MG ORAL DAILY, #90 TAB Prov: Xiang Fontana MD 10/07/19 Amlodipine Besylate (Norvasc) 10 Mg Tablet 10 MG ORAL DAILY, #90 TAB Prov: Xiang Fontana MD 10/07/19 Ibuprofen* (MOTRIN*) 600 Mg Tablet 600 MG ORAL THREE TIMES A DAY, #30 TAB 0 Refills Prov: Xiang Fontana MD 10/07/19 Additional Instructions: Follow-up with your doctor in 7 days. Take your blood pressure medication. Return if worse. Xiang Fontana MD Oct 07, 2019 06:08
[2019-10-07] MEDS ORDERED: HYDROCHLOROTHIA25 MG ORAL (06:11)
[2019-10-07] MEDS ORDERED: IBUPROFEN600 MG ORAL (06:11)
[2019-10-07] MEDS ORDERED: NORVASC10 MG ORAL (06:11)
[2019-10-07 06:15] VITALS: BP 180/100
[2019-10-07] MEDS ORDERED: hydroCHLOROthiazide 25mg cap ORAL ONE (06:15)
== END 2019-10-07 06:15 | disposition home or self-care (01) ==
LOC: EMR 06:11
DX: S16.1XXA Strain of muscle, fascia and tendon at neck level, initial encounter (principal); I10 Essential (primary) hypertension; J45.909 Unspecified asthma, uncomplicated; X58.XXXA Exposure to other specified factors, initial encounter; Y93.9 Activity, unspecified; Y92.9 Unspecified place or not applicable
CPT/HCPCS: 99282

== ENCOUNTER 2020-05-15 07:23 | Emergency (ER) | payer MEDICAID ==
[~2020-05-15] VITALS: Ht 160 cm; Wt 66.7 kg
--- NOTE | 2020-05-15 07:44 | NUR ---
ED Nurse Note: PT walked in to ed for C/O SOB with fever, chills, nausea, and vomiting sinc yesterday. Pt reports having history of asthma and ran out of her inhaler.
[2020-05-15 07:46] VITALS: BP 183/120
--- NOTE | 2020-05-15 07:52 | NUR ---
ED Nurse Note: Covid swab collected and sent to lab.
--- NOTE | 2020-05-15 07:53 | NUR ---
ED Nurse Note: CXR being done at bedside.
--- NOTE | 2020-05-15 08:29 | NUR ---
ED Nurse Note: pt receiving breathing tx at bedside.
[2020-05-15] MEDS ORDERED: Albuterol ud Inhalation HHN ONE (08:30)
[2020-05-15] MEDS ORDERED: Ipratropium 0.02% Inh Soln 2.5ml UD HHN ONE (08:30)
--- NOTE | 2020-05-15 09:17 | Emergency Room Report ---
History of Present Illness General Chief Complaint: Asthma Source: Patient Present Illness HPI This patient states he has a history of asthma. He states over the past 2 days he has noted difficulty breathing. He has had chest tightness. He states he is also had a dry cough. He denies fever or chills. He denies nausea or vomiting. He states that he does have an albuterol inhaler. He states that he is out of the albuterol for his nebulizer machine. He notes that recently he has been approved after applying for [employer] and will be following up with her primary care physician. He denies chest pain. He has no other complaints. Allergies: Coded Allergies: No Known Allergies (Unverified , 04/02/13) COVID-19 Screening Contact w/high risk pt: No Recent Travel to affected area: No Experienced COVID-19 symptoms?: No COVID-19 Testing performed GRIEVANCE COORDINATOR: No Patient History Past Medical History: see triage record, HTN, asthma Social History: Reports: alcohol use - moderate, drug use - THC ; Denies: smoking Reviewed Nursing Documentation: PMH: Agreed; PSxH: Agreed Nursing Documentation-PMH Past Medical History: No History, Except For Hx Hypertension: Yes Hx Asthma: Yes Review of Systems All Other Systems: negative except mentioned in HPI Physical Exam Vital Signs Date Time Temp Pulse Resp B/P (MAP) Pulse Ox O2 Delivery O2 Flow Rate FiO2 05/15/20 07:38 98.1 73 16 183/120 (141) 98 Room Air Sp02 EP Interpretation: reviewed, normal General Appearance: no apparent distress, alert, GCS 15, non-toxic Head: normocephalic, atraumatic Eyes: bilateral eye normal inspection, bilateral eye PERRL ENT: hearing grossly normal, normal pharynx, no angioedema, normal voice Neck: full range of motion, supple/symm/no masses Respiratory: chest non-tender, no respiratory distress, no retraction, no accessory muscle use, speaking full sentences, wheezing, expiration Cardiovascular #1: regular rate, rhythm, no edema Gastrointestinal: normal inspection Rectal: deferred Musculoskeletal: back normal, normal range of motion, gait/station normal, non- tender Neurologic: alert, motor strength/tone normal, oriented x3, sensory intact, responsive, speech normal Psychiatric: judgement/insight normal, memory normal, mood/affect normal, no suicidal/homicidal ideation Skin: normal color Medical Decision Making Diagnostic Impression: Primary Impression: Asthma attack ER Course This patient has a clinical presentation consistent with asthma exacerbation. Patient has a history of asthma and has wheezing on physical exam. The patient was given albuterol and Atrovent nebulizer treatments. The patient was also given prednisone orally. The patient had significant improvement in subjective shortness of breath. The patient's lung exam improved significantly. I will also treat the patient with a course of antibiotics as this has been shown to improve the course of an asthma exacerbation. The patient reports that he had been using his albuterol MDI inhaler 2-3 times a day for the past year. He has not in a medical provider for this other than an urgent cares and emergency departments. He does now have [facility] and states that he will be seeing an outpatient clinic for his asthma. I educated him on the importance of this and long-term lung inflammation. Patient indicated understanding intention to do so. The patient was given close return precautions and followup instructions. This patient was evaluated in the context of the global COVID-19 pandemic, which necessitated consideration that the patient might be at risk for infection with the [id number] virus that causes COVID-19. Institutional protocols and algorithms that pertain to the evaluation of patients at risk for COVID-19 and the state of rapid change based on information released by multiple regulatory bodies including the CDC and federal and state organizations. These policies and algorithms were followed during the patient's care in the ED. Chest X-Ray Diagnostic Results Chest X-Ray Diagnostic Results : Chest X-Ray Ordered: Yes # of Views/Limited/Complete: 1 View Indication: Shortness of Breath EP Interpretation: Yes Interpretation: no consolidation, no effusion, no pneumothorax, no acute cardiopulmonary disease Impression: No acute disease Electronically Signed by: Reina Mitchell DO Last Vital Signs Date Time Temp Pulse Resp B/P (MAP) Pulse Ox O2 Delivery O2 Flow Rate FiO2 05/15/20 07:46 73 16 Room Air 05/15/20 07:46 98.1 183/120 98 Status: improved Disposition: HOME, SELF-CARE Condition: Improved Referrals: NOT CHOSEN IPA/,REFERRING (PCP) Patient Instructions: Asthma, Adult Reina Mitchell DO May 15, 2020 09:17
[2020-05-15] MEDS ORDERED: ALBUTEROL2.5 MG/3 M HHN (09:43)
[2020-05-15] MEDS ORDERED: ADVAIR 250-501 EACH INH (09:43)
[2020-05-15] MEDS ORDERED: PREDNISONE20 MG ORAL (09:43)
[2020-05-15] MEDS ORDERED: ALBUTEROL SULF8.5 G1 INH (09:43)
[2020-05-15 09:49] VITALS: BP 168/102
--- NOTE | 2020-05-15 09:49 | NUR ---
ER DISCHARGE NOTE: Patient is cleared to be discharged per ERMD, pt is aox4, on room air, with stable vital signs. pt was given dc and prescription instructions, pt was able to verbalize understanding, pt id band removed without complications. pt is able to ambulate with steady gait. pt took all belongings.
[2020-05-15] MEDS ORDERED: NORVASC10 MG ORAL (10:02)
--- NOTE | 2020-05-15 13:20 | Diagnostic Imaging Report ---
Indication: Shortness of breath Technique: One view of the chest Comparison: 12/19/2016 Findings: Lungs and pleural spaces are clear. Heart size is normal. No significant change Impression: No acute process
== END 2020-05-15 09:49 | disposition home or self-care (01) ==
LOC: EMR 07:47
DX: J45.901 Unspecified asthma with (acute) exacerbation (principal); I10 Essential (primary) hypertension
CPT/HCPCS: 71045; 94640; J7512; U0002; Z7502; 99284